=== PATIENT | male | born 1955 | race Caucasian/White ===

== ENCOUNTER 2020-08-04 05:34 | Inpatient (IN) | payer MEDICARE ==
[2020-08-03 10:31] LABS: HEMATOCRIT 45.2 % (42.0-52.0); MEAN CELL VOLUME 88 fl (80.0-100.0); MEAN CORPUSCULAR HEMOGLOBIN 31 pg (27.0-31.0); MEAN CORPUSCULAR HGB CONC 35 g/dl (33.0-37.0); MEAN PLATELET VOLUME 9.7 fl (7.4-10.4); PLATELET COUNT 294 K/mm3 (130-400); RED BLOOD COUNT 5.15 M/mm3 (4.20-5.60); REDCELL DISTRIBUTION WIDTH-CV 12.1 % (11.5-14.5)
[2020-08-03 11:06] LABS: ALBUMIN 4.7 gm/dL (3.5-5.0); BILIRUBIN,TOTAL 0.4 mg/dL (0.0-1.0); CALCIUM 9.4 mg/dL (8.4-10.2); CREATININE, serum 0.68 (0.66-1.25); POTASSIUM 4.7 mmol/L (3.4-5.0); TOTAL PROTEIN 7.2 gm/dL (6.4-8.2)
[~2020-08-04] VITALS: Ht 172.7 cm; Wt 61.3 kg
[2020-08-04] VITALS (10 sets, daily range): BP systolic 103–156; BP diastolic 62–88; PULSE 82–97; TEMP 98.1–98.7
[2020-08-04] MEDS ORDERED: LIPITOR 40MG TA40 MG PO (06:03)
[2020-08-04] MEDS ORDERED: TIROSINT112 MC1 PO (06:05)
[2020-08-04] MEDS ORDERED: DILANTIN 100MG100 MG PO (06:06)
[2020-08-04] MEDS ORDERED: ONE-A-DAY ESSE1 EACH PO (06:07)
[2020-08-04 06:55] LABS: ALBUMIN 4.6 gm/dL (3.5-5.0); BILIRUBIN,TOTAL 0.5 mg/dL (0.0-1.0); CALCIUM 9.4 mg/dL (8.4-10.2); CREATININE, serum 0.61 (0.66-1.25); POTASSIUM 4.1 mmol/L (3.4-5.0); TOTAL PROTEIN 7.2 gm/dL (6.4-8.2)
--- NOTE | 2020-08-04 12:30 | NUR ---
Patient is back from surgery at this time. Denies nausea. Stated having some pain to his right lower quadrant. Explained will have some scheduled medications for pain but he wanted to wait to take them because he felt like he was having heartburn. WERNER drain to bulb suction. Minimal output. Incisions well approximated. Hahn secured to leg, and draining. Urine is frederick, no clots noted. No other changes at this time. Call light within reach.
--- NOTE | 2020-08-04 16:45 | NUR ---
Patient finally was agrreable to taking the scheduled medications for pain, he stated they did not work and he continues to have sharp pain to his right lower quadrant. His abdomen is slightly distended but soft. It is not worse than when he arrived from surgery. The area he is having the pain at is soft and non-tender. No pain when touching abdomen or moving in the bed. No hematoma noted. Notified Dr Campbell, additional medications ordered for patient. No other changes at this time. Call light within reach.
--- NOTE | 2020-08-04 19:00 | NUR ---
Patients pain is finally controlled. Denies nausea. He stated he was able to pass some gas. He is tolerating clear liquids. His urine output is starting to pickup. Explained that now that his pain is better he needs to get up and walk in the hallways tonight, he verbalized understanding. No other changes at this time. Call light within reach.
--- NOTE | 2020-08-04 20:45 | NUR ---
Pt. sitting up in bed at this time. Pt. is A&OX3, assessment complete. IV to lt. hand patent, IV fluids infusing per orders. Pt. reports abd. pain at a 4 on pain scale, gave scheduled pain meds. Pt. denies further needs, call light within reach.
[2020-08-05] VITALS (7 sets, daily range): BP systolic 112–148; BP diastolic 60–87; PULSE 73–88; TEMP 97.8–99.1
[2020-08-05 07:50] LABS: HEMATOCRIT 38.8 % (42.0-52.0)
--- NOTE | 2020-08-05 07:57 | NUR ---
Lying in bed with eyes open. Alert and oriented x4. Rates pain in abd 6/10, says that he is also feeling bloated. Will see if patient is due for pain medication and administer as prescribed. Hahn to dependent drainage with clear yellow urine. WERNER drain compressed with very minimal bloody drainage noted in bulb. Lap sites with all edges well approximated, no redness/swelling/drainage. Patient denies additional needs at this time.
[2020-08-05 08:12] LABS: CALCIUM 8.7 mg/dL (8.4-10.2); CREATININE, serum 0.7 (0.66-1.25); POTASSIUM 4.4 mmol/L (3.4-5.0)
[2020-08-05 08:24] LABS: HEMOGLOBIN 13.2 g/dl (13.5-18.0)
--- NOTE | 2020-08-05 09:31 | NUR ---
Review with patient cath care at home, how to disconnect and reconnect to leg bag. Patient verbalizes understanding to all and denies additional questions. Patient provided with extra leg bag and larger bag for night use.
--- NOTE | 2020-08-05 10:05 | NUR ---
Patient lying in bed with eyes open. Discussed diet and assisted patient in calling kitchen to get chicken noodle soup and sweet potato for lunch. Patient ambulates in halls to nurses station and then back to room. Patient prefers to get back in bed to lay flat as he says that this is most comfortable for him. Denies needs at this time.
--- NOTE | 2020-08-05 11:07 | NUR ---
KJ met with the patient to discuss discharge plan. The patient lives in [place] with his , Evy ([phone]). He reports independence with ADLs and does not have any DME. The patient's PCP is Dr. Moshe Hebert in [place] and he receives his medications from [facility]. He reports no difficulties obtaining his meds. The patient does not have a DPOA-HC, but he was interested in obtaining a form. KJ provided. The patient plans to return home with his upon discharge. No additional needs at this time.
--- NOTE | 2020-08-05 13:13 | NUR ---
Dr. Campbell provided with update that patient would prefer to stay one more night.
--- NOTE | 2020-08-05 13:14 | NUR ---
Patient lying in bed with eyes open watching TV. Was able to eat 75% of lunch tray, chicken noodle soup and some of his sweet potatoe. Patient says that with how he is feeling he would be more comfortable staying again tonight and going home tomorrow. Explain that I would update Dr. Campbell. Patient denies additional needs at this time.
--- NOTE | 2020-08-05 13:21 | NUR ---
First visit from the switchboard wirer. No needs right now.
--- NOTE | 2020-08-05 15:00 | NUR ---
Patient ambulates in halls with standby assist of one. Gait slow and steady. Patient ambulates to end of camacho in joint area and then returns to room. Patient said that his was wanting to talk to this nurse. Attempt to contact patient's , line keeps ringing, no machine picks up to leave message.
--- NOTE | 2020-08-05 16:14 | NUR ---
Lying in bed with eyes open. Rates pain in abd 8/10, requests pain medication. Administer pain medication as prescribed. Patient denies additional needs at this time.
--- NOTE | 2020-08-05 17:10 | NUR ---
Patient continues to rate pain in abd 03/09. Questions if the WERNER may be causing some of the pain in abd. Explain that it could be causing some of the pain. Explain that we will contact Dr. Campbell to see if the drain can be dc'd. Spoke with Dr. Campbell and orders received to dc WERNER drain.
--- NOTE | 2020-08-05 17:21 | NUR ---
Discuss procedure for WERNER removal. Site cleaned with alcohol wipes. Suture cut. Drain pulled at this time and 4x4s held at site. Patient says that some of the pain in his abd already feels better. Apply two 4x4's to site and reinforce with tegaderm. Patient remains resting in bed. Denies additional needs at this time.
--- NOTE | 2020-08-05 17:53 | NUR ---
Lying in bed watching TV. Rates pain 3/10 in abd. Says that since getting the WERNER removed it has gotten much better. Patient denies needs at this time.
--- NOTE | 2020-08-05 20:25 | NUR ---
AMBULATED IN HALLWAY WITH STAFF, DOES WELL. TAKES HS MEDS WITHOUT PROBLEM. HAS LAP SITES X5 WITH GAUZE TO OLD LEFT WERNER DRAIN SITE. LANDA TO LEG BAG WITH YELLOW URINE. IS ALERT AND ORIENTED X4. SL TO LEFT HAND WITHOUT REDNESS OR SWELLING.
--- NOTE | 2020-08-05 20:45 | NUR ---
PT ABLE TO CHANGE LEG BAG TO BED BAG ON OWN. HAS SMALL LOOSE STOOL AND FLATUS, ABD LESS DISTENDED. BACK TO BED.
--- NOTE | 2020-08-05 21:58 | NUR ---
MEDICATED WITH SCHEDULED TORADOL AND DOSE OF OXYCODONE 5MG PO FOR PAIN. FEELING BETTER AND READY FOR SLEEP.
--- NOTE | 2020-08-06 01:00 | NUR ---
SCHEDULED ES TYLENOL GIVEN. PT REPORTS NO PAIN.
[2020-08-06 04:42] VITALS: BP 124/71; PULSE 78; TEMP 98.2
[2020-08-06 07:44] VITALS: BP 124/76; PULSE 91; TEMP 98.3
--- NOTE | 2020-08-06 10:35 | NUR ---
Patient alert and oriented, answers questions appropriately. See assessment. Abdomen soft, non tender, non distended. Bowel sounds active x4 quads. +Flatus. +Bowel movement. Lap sites to abdomen with edges well approximated, no redness or drainage noted. Hahn catheter patent, draining clear yellow urine. Post op exercises reviewed with patient. No c/o at this time.
--- NOTE | 2020-08-06 11:33 | NUR ---
Discharge instructions reveiwed with patient, verbalized understanding. Discharged via wheelchair to auto/home with spouse at 1130.
== END 2020-08-06 11:30 | disposition home or self-care (01) | DRG 708 ==
LOC: INPTSU 05:34 → SURG 07:30
PROVIDERS: Nurse Anesthetist, Certified Registered; ADMIT Urology
PROC: 8E0W4CZ Robotic Assisted Procedure of Trunk Region, Percutaneous Endoscopic Approach (ICD-10-PCS; 2020-08-04)
PROC: 0VT04ZZ Resection of Prostate, Percutaneous Endoscopic Approach (ICD-10-PCS; principal; 2020-08-04 07:30)
DX: C61 Malignant neoplasm of prostate (principal); E78.5 Hyperlipidemia, unspecified; E03.9 Hypothyroidism, unspecified; G40.909 Epilepsy, unspecified, not intractable, without status epilepticus; Z90.49 Acquired absence of other specified parts of digestive tract; K21.9 Gastro-esophageal reflux disease without esophagitis
CPT/HCPCS: A4314; A9284; J0690; J1100; J1885; J2250; J2405; J2704; J3010; J7120